=== PATIENT | male | born 1975 | race African-American/Black ===

== ENCOUNTER 2016-09-24 18:21 | Inpatient (IN) | payer SELFPAY ==
[~2016-09-24] VITALS: Ht 188 cm; Wt 109.8 kg
--- NOTE | ~2016-09-24 | OR ---
PATIENT'S NAME: HELGA SUBRAMANIAN [facility] AGE: 41 Y [address] ROOM: [place] [id number] [place] [facility] [place] DATE: 09/24/2016 OR/Procedure Report DISCHARGE DATE: FAMILY PHYSICIAN: PHYSICIAN, NO ATTENDING PHYSICIAN: Jing REGAN SURGEON: Yanci Mcneil MD BUNDLE PERSON: None. DATE OF PROCEDURE: 09/24/2016 PREOPERATIVE DIAGNOSES: 1. Acute urinary retention. 2. Recurrent urethral stricture disease. POSTOPERATIVE DIAGNOSES: 1. Acute urinary retention. 2. Recurrent urethral stricture disease. OPERATION/PROCEDURE PERFORMED: Cystourethroscopy with urethral dilation and placement of Johnson catheter. ANESTHESIA ADMINISTERED: Laryngeal mask airway anesthesia. INDICATIONS FOR PROCEDURE: The patient is a pleasant 41-year-old male, who presented to the emergency room today in acute urinary retention. There is continued difficulty with placement of indwelling Johnson catheter. The patient does have a history of recurrent urethral stricture disease, who had previously underwent multiple procedures including previous urethral dilation and direct vision internal urethrotomy, but also possibly a urethral stent placement in the past. The patient was explained the risks, benefits, indications, and alternatives to above procedure and wished to proceed and consented freely. DESCRIPTION OF OPERATION: The patient was brought back to the operating room, where he was placed on the OR table in the supine position. A surgical time- out was called where patient identification, surgical site, and procedure was then verified. We also did verify that the patient received an IV cephalosporin antibiotic within an hour of beginning the procedure. The patient then underwent successful administration of laryngal mask airway anesthesia. The patient was then moved and placed in a low lithotomy position. The patient was then prepped and draped in the usual sterile fashion after being placed in the lithotomy position. I began by advancing the rigid cystoscope easily into the patient's urethra. His initial anterior urethra was within normal limits. I then came across a bulbar urethral stricture, which was approximately 6 to 8-Kyrgyz in caliber. I was then able to successfully advance a guidewire past the level of the stricture and up PATIENT'S NAME: HELGA SUBRAMANIAN [facility] AGE: 41 Y [address] ROOM: [place] [address] [place]: [facility] [place] DATE: 09/24/2016 OR/Procedure Report DISCHARGE DATE: FAMILY PHYSICIAN: KIMBERLY ANDERSEN ATTENDING PHYSICIAN: Jing REGAN into his bladder under fluoroscopy. Then, over the wire, I performed sequential urethral dilation using the S-curve urethral dilator kit and dilating sequentially up to 20-Kyrgyz in caliber. After dilation, I then readvanced with a flexible cystoscope and up into his bladder. Just proximal to the level of his urethral stricture, which we dilated and was now open, it did appear that he had some foreign body material consistent with likely urethral stent placement in the past. This area of urethra where the apparent stent is in place, was open and it appeared that he had a stricture just distal to the level of the urethral stent. After the urethral stent, I then advanced into his posterior urethra and his prostatic urethra was notable for some mild bilobar hyperplasia of the prostate. Upon entry into his bladder, full beard-cystoscopy was performed and his bladder was negative for any bladder tumors, cellules, or diverticula. He did have some alxa-re-pzkdfzoh bladder trabeculation. His ureteral orifices did appear to be in their orthotopic location. I then withdrew the cystoscope. Then, over the super-stiff guidewire, I advanced a 16-Kyrgyz Coh[place]-tip Johnson catheter over the wire into the patient's bladder and placed 10 cubic centimeters of sterile water in the balloon and this Johnson catheter was placed to gravity drainage. The patient was then taken out of the lithotomy position, where he was then awoken from general anesthesia, extubated, and transferred to the recovery bed and transported to the recovery room in good condition. COMPLICATIONS: None. DRAINS: Indwelling 16-Kyrgyz Johnson catheter to gravity drainage. SPECIMENS: None. ESTIMATED BLOOD LOSS: Minimal. FOLLOWUP PLAN: We will plan to have the Hospitalist team observe the patient overnight to monitor for any sort of postobstructive diuresis. We will then plan for him to keep the catheter in place until Wednesday, September 28, 2016, and then I will see him back for followup in my clinic in approximately 2 to 3 weeks to discuss definitive options for his recurrent urethral stricture disease. Essentially, his options to include observation with intermittent self-catheterization to self dilate this area of stricture and keep it open. For him to undergo a reconstructive surgery will likely require referral to a reconstructive urologist given the complicated nature of his case given likely urethral stent implantation in the past. We will also work on getting his previous op note from this urethral stent placement, which apparently was performed in [place]. PATIENT'S NAME: HELGA SUBRAMANIAN [facility] AGE: 41 Y [address] ROOM: [place] [address] [place]: [facility] [place] DATE: 09/24/2016 OR/Procedure Report DISCHARGE DATE: FAMILY PHYSICIAN: PHYSICIANKIMBERLY ATTENDING PHYSICIAN: Jing REGAN YANCI MCNEIL MD GP/modl /[id number] CC: Misha Phipps MD d: 09/25/16 0221 t: 09/28/16 1829, OPERATIVE SUMMARY
--- NOTE | ~2016-09-24 | HP ---
PATIENT'S NAME: HELGA SUBRAMANIAN [facility] AGE: 41 Y [address] ROOM: [place] [address] LOCATION: [facility] [place] ADMIT DATE: 09/24/2016 History & Physical DISCHARGE DATE: 09/25/2016 FAMILY PHYSICIAN: , NO ATTENDING PHYSICIAN: Jing REGAN DATE OF SERVICE: ADDENDUM: Problem #5: Urinary tract infection. The patient reports of dysuria and UA shows significant pyuria. We will start the patient on ceftriaxone, and we will follow up with urine culture for culture and sensitivity. MD LAITH ARELLANO/kalyn /[id number] D: [id number] T: [id number] HISTORY & PHYSICAL
--- NOTE | ~2016-09-24 | HP ---
PATIENT'S NAME: HELGA SUBRAMANIAN [facility] AGE: 41 Y [address] ROOM: [place] [address] LOCATION: [facility] [place] ADMIT DATE: 09/24/2016 History & Physical DISCHARGE DATE: FAMILY PHYSICIAN: PHYSICIAN, NO ATTENDING PHYSICIAN: Jing REGAN DATE OF SERVICE: CHIEF COMPLAINT: Obstructive uropathy. HISTORY OF PRESENT ILLNESS: The patient is a 41-year-old gentleman with past medical history of urethral stricture with obstructive uropathy, who presents here with inability to urinate. The patient reports that he has a history of urethral stricture in the past and has had multiple surgeries. He reports that he was initially diagnosed with urethral stricture at age 8 and has had multiple cystoscopy with stricture dilation in the past and last dilation was done in May [address] Urias. He reports that after that procedure he was self- cathing for 6 months, but however, discontinued self-cathing as his urinary outflow improved. He also reports to have in the past history of suprapubic catheter. However, today he presents with inability to urinate since this afternoon. He reports of overflow incontinence and dysuria. He reports that he has pain, which he rates 10/10 when he strains. He reports of chills, but denies fever. He denies headache, chest pain, shortness of breath, nausea, vomiting, abdominal pain, or diarrhea. PAST MEDICAL HISTORY: 1. Urethral stricture. 2. Tobacco abuse. PAST SURGICAL HISTORY: Multiple urethral stricture dilations. FAMILY HISTORY: Reports both his parents are in good health. Reports his grandmother has a history of cancer, but does not know what type. 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 MEDICATIONS: He takes no medication and reports he took some Tylenol and aspirin during this event. PATIENT'S NAME: HELGA SUBRAMANIAN [facility] AGE: 41 Y [address] ROOM: [place] [address] LOCATION: [facility] [place] ADMIT DATE: 09/24/2016 History & Physical DISCHARGE DATE: FAMILY PHYSICIAN: PHYSICIAN, NO ATTENDING PHYSICIAN: Jing REGAN REVIEW OF SYSTEMS: All systems have been reviewed and are negative except what I mentioned in HPI. PHYSICAL EXAMINATION: VITAL SIGNS: Temperature 98.5, blood pressure 176/113, heart rate 93, respiratory rate 22, and saturating 95% on room air. GENERAL APPEARANCE: The patient appears in mild distress due to strain and overflow incontinence. HEAD: Normocephalic, atraumatic. EYES: Extraocular muscles intact. NOSE: No nasal discharge. ORAL CAVITY: Dry oral mucosa. CHEST: Clear to auscultation bilaterally. HEART: Regular rate and rhythm. No murmurs, rubs, or gallops. ABDOMEN: Soft, nontender, and nondistended. Bowel sounds present. : No blood seen through meatus. No swelling around the scrotum. Normally appearing penis. MUSCULOSKELETAL: Range of motion intact. No obvious joint effusion noted. SKIN: Warm to touch. No obvious lesion noted. PRODUCT DEVELOPMENT COORDINATOR: Alert and oriented x3. Motor and sensory grossly intact. LABORATORY DATA: Sodium 141, potassium 3.8. White blood cell count 6.4, platelet of 222, hemoglobin 15. Creatinine 1.4, BUN of 15, CO2 of 25, and blood glucose 107. UA shows pyuria and hematuria. ASSESSMENT AND PLAN: 1. Acute kidney injury, etiology most likely secondary to obstructive uropathy due to urethral stricture. The patient is scheduled for cystoscopy and dilation today. To monitor urine output every hour. Monitoring for postobstructive diuresis. If urine output is greater than 200 cc for 2 consecutive hours, to treat for postobstructive diuresis. Monitor urine output every 2 hours that should total fluid intake and by replacing every cc of urine output with 0.5 mL of half normal saline IV fluid. We will acquire CMS in the morning. The patient's baseline creatinine is 1, presented with creatinine of 1.4. 2. Obstructive uropathy secondary to urethral stricture. The patient is scheduled for cystoscopy and dilation. We will acquire renal ultrasound to further investigate the patient's underlying hydronephrosis. 3. Tobacco abuse. Greater than 3 minutes, but less than 10 minutes were spent on tobacco cessation. The patient not ready to quit smoking at this moment. We will offer nicotine during stay. Greater than 60 minutes were spent on the patient's care. Assessment and plan PATIENT'S NAME: HELGA SUBRAMANIAN [facility] AGE: 41 Y [address] ROOM: [place] [id number] LOCATION: [facility] [place] ADMIT DATE: 09/24/2016 History & Physical DISCHARGE DATE: FAMILY PHYSICIAN: PHYSICIAN, NO ATTENDING PHYSICIAN: Jing REGAN was discussed with the patient. Also, plan was discussed with Dr. Mcneil. The patient's question was answered with satisfaction. MD LAITH ARELLANO/kalyn /[id number] D: T: HISTORY & PHYSICAL
--- NOTE | ~2016-09-24 | ER ---
PATIENT'S NAME: HELGA SUBRAMANIAN [facility] AGE: 41 Y [address] ROOM: [place] [address] LOCATION: [facility] [place] ADMIT DATE: 09/24/2016 ER/Outpatient Report DISCHARGE DATE: FAMILY PHYSICIAN: PHYSICIAN, NO ATTENDING PHYSICIAN: Jing GAMBLE HISTORY OF PRESENT ILLNESS: A 41-year-old male who presents with a chief complaint of inability to urinate x6.5 hours ago. He has 10/10 pain with nausea and fever. He reports a urinary frequency and pain with urination. He says he is able to pee a little bit, but only when he sort of milks his penis. He has history of urethral strictures and 2 years ago he came in for something similar, they were unable to pass it because of all the strictures, that he had to go to the OR to have this done. He had urethral dilatation with Dr. Urias. The patient has no other complaints at this time. No upper abdominal pain. No back pain. PAST MEDICAL HISTORY: Includes history of urethral strictures. PAST SURGICAL HISTORY: Includes this urethral stricture release and dilatation. SOCIAL HISTORY: Smokes 1 pack per day x10 years. Denies drug or alcohol use. MEDICATIONS: None. ALLERGIES: NONE. REVIEW OF SYSTEMS: Reviewed by me and negative with the exception of those discussed in the HPI. PHYSICAL EXAMINATION: VITAL SIGNS: The patient is 6 feet, 2 inches, he is 109.9 kilos, blood pressure 173/113, heart rate 93, respiratory rate 22, temp is 98.5, and sats are 95% on room air. GENERAL: The patient looks extremely uncomfortable, he is diaphoretic, he is not pale, he looks like he is in a lot of pain, he is unable to sit down too long for me to do an exam. NEURO: He is alert and oriented x4. His gait was within normal limits. He is not ataxic. HEART: His heart rate is regular rate and rhythm. He is not tachycardic. LUNGS: His lungs sounds are clear. PATIENT'S NAME: HELGA SUBRAMANIAN [facility] AGE: 41 Y [address] ROOM: [place] [address] LOCATION: [facility] [place] ADMIT DATE: 09/24/2016 ER/Outpatient Report DISCHARGE DATE: FAMILY PHYSICIAN: PHYSICIAN, NO ATTENDING PHYSICIAN: Jing GAMBLE ABDOMEN: Lower abdomen is distended, no peritoneal signs, but he has bladder distention, no right upper quadrant tenderness or left upper quadrant tenderness, no CVA tenderness bilaterally. SKIN: He is warm, intact, no rash, but he is very diaphoretic at this time. EMERGENCY ROOM COURSE: We attempted to pass an 8-Pashto and a 16 coude without any success; so, we placed an IV and checked a CBC, CMP, and a UA based off the little bit of urine he was able to give us, it showed leukocytes of 100, negative nitrites, negative glucose or ketones, and blood was 150. His renal panel shows sodium 141, potassium 3.8, chloride 109, CO2 25, anion gap 10.8, BUN is 15, creatinine is 1.4, GFR is 56, and then the CBC shows a white count of 6.4, H and H of 15/44.3, and platelets are 222. No bandemia or shift. I consulted Dr. Mcneil about this patient. He would like this patient to be admitted to the Hospitalist Service and then the patient made n.p.o. for him to go to the OR tonight for urethral dilatation and possibly a suprapubic cath, which the patient says he has had before. I also spoke with Dr. Gamble for admission. The patient is admitted in stable condition. He will go to the OR first. IMPRESSION: Urinary retention. MD AMANDEEP PETE/kalyn /[id number] d: 09/25/1658 t: 09/25/161933, OUTPATIENT REPORT
--- NOTE | ~2016-09-24 | CON ---
PATIENT'S NAME: HELGA SUBRAMANIAN [facility] AGE: 41 Y [address] ROOM: [address] [address] [place] [facility] [place]MIT DATE: 09/24/2016 Consultation DISCHARGE DATE: FAMILY PHYSICIAN: PHYSICIAN, NO ATTENDING PHYSICIAN: Jing REGAN DATE OF CONSULTATION: 09/24/2016 REFERRING PHYSICIAN: YANCI FAULKNER MD CHIEF COMPLAINT: Urinary retention. HISTORY OF PRESENT ILLNESS: The patient is a pleasant 41-year-old male with history of recurrent urethral stricture disease. He reports history of previous urethral dilations, which he has underwent at least 4 to 5 previous dilations in the past. Most recent procedure was on May 01, 2014, for which he underwent a direct vision internal urethrotomy by Dr. Bre Urias who was unsuccessful in trying to dilate him and so I proceeded on to the DVIU procedure. The patient had been instructed to follow up 2 months after his clinic followup visit and did not return for followup. The patient also reports remote history of possibly undergoing placement of a urethral stent as well. He denies any prior known trauma to his urethra or pelvis. He states that, he believes, he had underwent a urethral stent placement very near his bladder neck when he was in care home in [place]. He has noted progressive weakening of his urinary stream over the last several months and then this afternoon was unable to void. He presented to the emergency room today in acute urinary retention. The emergency room was unsuccessful in placing both a 12-Samoan Johnson catheter but also a 16-Samoan coude Johnson catheter. The patient is quite uncomfortable with full bladder. The patient has denied any gross hematuria or dysuria. He underwent a urinalysis from the small amount he was able to void out in the emergency room with findings including negative nitrite, 100 leukocytes, 5 to 10 red blood cells per high-powered field, 5 to 10 white blood cells per high- powered field, and few bacteria. His white blood cell count was 6.4. His serum creatinine level was elevated at 1.4. The patient has no further questions or concerns at this time. PAST MEDICAL HISTORY: Recurrent urethral stricture disease. PAST SURGICAL HISTORY: 1. Multiple previous urethral dilations and direct vision internal urethrotomy. 2. Possible urethral stent placement and passed. PATIENT'S NAME: HELGA SUBRAMANIAN [facility] AGE: 41 Y [address] ROOM: [place] [address] [place]: [facility] [place]MIT DATE: 09/24/2016 Consultation DISCHARGE DATE: FAMILY PHYSICIAN: PHYSICIAN, NO ATTENDING PHYSICIAN: Jing REGAN FAMILY HISTORY: The patient denies any known family history of genitourinary abnormalities. SOCIAL HISTORY: The patient does report a significant history of smoking at least 1 pack per day. He denies any alcohol use. ALLERGIES: NO KNOWN DRUG ALLERGIES. MEDICATIONS: See attached hospitalization medication reconciliation. REVIEW OF SYSTEMS: A full 10+ point review of systems was performed with pertinent positive and negative findings included in the history of present illness. All other systems reviewed and are otherwise negative. PHYSICAL EXAMINATION: VITAL SIGNS: The patient's height is 6 feet 2 inches. His weight is 109 kg. His pulse is 93, respiratory rate 22, temperature is 98.5 degrees Fahrenheit, and blood pressure 176/113. His oxygen saturation is 95% on room air. CONSTITUTIONAL: The patient is in mild distress. HEENT: Extraocular muscles intact. Mucous membranes moist. No drainage per ears and nose. CARDIAC: Good peripheral perfusion. RESPIRATORY: No audible wheezing or stridor. ABDOMEN: Soft, nondistended, with palpable discomfort in suprapubic region. GENITOURINARY: Normal circumcised phallus with urethral meatus in its orthotopic location with no urethral discharge. Testes are palpably normal with no testicular masses. MUSCULOSKELETAL: Moves all extremities. NEUROLOGIC: No focal deficits noted. PSYCHIATRIC: Normal affect and answers questions appropriately. IMPRESSION: 1. Acute urinary retention. 2. History of recurrent urethral stricture disease. PLAN: I had a long discussion today with the patient regarding my findings. Given his difficulty today in the emergency room with acute urinary retention and multiple unsuccessful urethral catheter attempts, I did recommend further evaluation with cystoscopy with likely urethral dilation versus direct vision internal urethrotomy and catheter placement. We will then plan to have the PATIENT'S NAME: HELGA SUBRAMANIAN [facility] AGE: 41 Y [address] ROOM: [place] [address] [place]: [facility] [place] ADMIT DATE: 09/24/2016 Consultation DISCHARGE DATE: FAMILY PHYSICIAN: PHYSICIAN, NO ATTENDING PHYSICIAN: Jing REGAN Hospitalist team closely monitor the patient for a postobstructive diuresis with hopeful discharge to home tomorrow morning. We also discussed the possibility of a suprapubic tube catheter placement. We discussed the risks, benefits, indications, and alternatives to the above procedures, and he wished to proceed and consented freely. Ultimately, the patient may be a candidate in the future for definitive treatment with urethral reconstruction, although if he has had history of urethral stent placement, this would likely be a more complicated endeavor in which case we would have to refer him off to a reconstructive urologist. The patient has no further questions or concerns at this time. YANCI FAULKNER MD GP/kalyn /[id number] d: 09/25/16 0148 t: 09/28/16 1827, CONSULTATION REPORT
[2016-09-24 18:55] LABS: BILIRUBIN URINE NEGATIVE (NEGATIVE); BLOOD URINE 150 /UL (NEGATIVE); COLOR URINE YELLOW (YELLOW); GLUCOSE URINE NEGATIVE (NEGATIVE); KETONE URINE NEGATIVE (NEGATIVE); LEUKOCYTES URINE 100 /UL (NEGATIVE); NITRITE URINE NEGATIVE (NEGATIVE); PROTEIN URINE 30 mg/dL (NEGATIVE); SPEC GRAVITY URINE 1.025 (1.003-1.035); TURBIDITY URINE CLEAR (CLEAR); UROBILINOGEN URINE 1 mg/dL (NORMAL)
[2016-09-24 19:15] LABS: BACTERIA URINE FEW (NEGATIVE); MUCUS URINE 3+ (NEGATIVE)
[2016-09-24 19:16] LABS: BASOPHIL % 0.6 %; EOSINOPHIL # 0.2 K/uL (0.0-0.5); EOSINOPHIL % 3.3 %; HEMATOCRIT 44.3 % (37.0-53.0); IMMATURE GRANULOCYTE % 0.2 %; LYMPHOCYTE # 3.5 K/uL (0.8-4.0); LYMPHOCYTE % 55.1 %; MCH 30.4 pg (27.0-34.0); MCHC 33.9 gm/dL (32.0-36.5); MCV 89.9 fl (83.0-98.0); MONOCYTE # 0.6 K/uL (0.0-1.0); MONOCYTE % 9.6 %; MPV 10.3 fl (9.4-12.4); NEUTROPHIL % 31.2 %; NRBC % 0 /100WBC (0-0.00); PLATELET COUNT 222 K/uL (150-450); RBC 4.93 M/uL (4.00-6.00); RDW-CV 12.5 % (11.9-14.6); WBC 6.4 K/uL (4.0-11.0)
[2016-09-24 19:16] LABS: HYALINE CAST URINE 0-2 #/LPF (NEGATIVE)
[2016-09-24 19:28] LABS: ALBUMIN 4.3 gm/dL (3.5-5.0); ANION GAP 10.8 (10.0-19.0); CALCIUM 9.1 mg/dL (8.5-10.5); CREATININE 1.4 mg/dL (0.6-1.3); PHOSPHORUS 3.5 mg/dL (2.5-4.9); POTASSIUM 3.8 mMol/L (3.7-5.1)
--- NOTE | 2016-09-25 04:20 | NUR ---
Significant Event: Patient alert and oriented X4. Up with stand by assist. Vitals stable. Wears cpap at night but does not have it here so on 2 liters oxygen while sleeping. Regular diet. Has had pudding and applesauce and done ok. Johnson in place. Walked from bed to bathroom fine, but very sleepy. did not walk in halls. SLept most of shift. Has history of previous urethral strictures. No home meds. Only surgical history is previous cystos for same issue. Pack a day smoker currently. Denies pain/nausea. R) hand IV. Orders to monitor urine output over 2 hours Follow up:
[2016-09-25 05:25] LABS: ALBUMIN 3.9 gm/dL (3.5-5.0); ALK PHOS 56 IU/L (33-138); ALT 36 IU/L (12-78); ANION GAP 9.5 (10.0-19.0); AST 27 IU/L (10-40); BLOOD UREA NITROGEN 14 mg/dL (6-24); CALCIUM 8.6 mg/dL (8.5-10.5); CHLORIDE 109 mMol/L (96-110); CO2 26 mMol/L (22-32); CREATININE 1.2 mg/dL (0.6-1.3); ESTIMATED GFR (MDRD EQUATION) > 60; POTASSIUM 4.5 mMol/L (3.7-5.1); SODIUM 140 mMol/L (135-145); TOTAL BILIRUBIN 0.4 mg/dL (0.0-1.5); TOTAL PROTEIN 7.5 g/dL (6.0-8.4)
[2016-09-25] MEDS ORDERED: NEOSPORIN1 PKT TOP (12:34)
[2016-09-25] MEDS ORDERED: BACTRIM DS1 TAB PO (12:35)
== END 2016-09-25 13:02 | disposition disaster alternative care site (69) | DRG 697 ==
LOC: GMED 18:21 → GMSU 19:32
PROVIDERS: Emergency Medicine; ADMIT Internal Medicine
PROC: 0T7D8ZZ Dilation of Urethra, Via Natural or Artificial Opening Endoscopic (ICD-10-PCS; principal; 2016-09-24)
DX: N35.9 Urethral stricture, unspecified (principal); N17.9 Acute kidney failure, unspecified; N39.0 Urinary tract infection, site not specified; F17.210 Nicotine dependence, cigarettes, uncomplicated; N40.1 Benign prostatic hyperplasia with lower urinary tract symptoms; R33.8 Other retention of urine; N13.9 Obstructive and reflux uropathy, unspecified; Z98.890 Other specified postprocedural states
CPT/HCPCS: J0690; J0696; J2405; J3010; J7030; J7040